=== PATIENT | male | born 1970 | race African-American/Black ===

== ENCOUNTER 2016-04-29 21:43 | Emergency (ER) | payer OTHER ==
[~2016-04-29] VITALS: Ht 180.3 cm; Wt 85.0 kg
[2016-04-29 22:17] VITALS: BP 143/88; PULSE 69; RESP 16; TEMP 99; O2SAT 99
[2016-04-29] MEDS ORDERED: SODIUM CHLOR 0.9% 1000 ML INJ 1,000 ML IV ONE (22:33)
--- NOTE | 2016-04-29 22:38 | PD ---
HPI Chief Complaint: Flank/Kidney Pain Time Seen by Provider: 22:33 Travel History International Travel<30 days: No Contact w/Intl Traveler<30days: No Traveled to known affect area: No History of Present Illness HPI 46-year-old male presents to the emergency department by private transportation the care of his spouse for evaluation of right flank pain. Patient reports history of recurrent kidney stones. Patient reports he has never had this type of pain and discomfort before. Patient states due to persistent nausea and vomiting unable to hydrate. Patient was seen earlier in the week at work for swallowing be seen by primary care provider and ultrasound was done that showed hydronephrosis. Patient has pain from the right flank to the right lower quadrant. Patient denies fever chills. Patient is also on oral antibiotic is reportedly has a urinary tract infection. Patient states that he was given ibuprofen 800 mg but has not had adequate pain relief. Patient states he typically does well with oral hydration and nonsteroidal anti-inflammatory but this episode is more severe. Patient denies other illness or concerns. PFSH Past Medical History Narrative Medical Kidney stones, partial colectomy--pediatric; no tobacco use Social History Tobacco Use: No Allergies-Medications (Allergen,Severity, Reaction): Coded Allergies: Tetracycline (Verified Allergy, Severe, Anaphylaxis, 04/29/16) Reported Meds & Prescriptions Reported Meds & Active Scripts Active Flomax (Tamsulosin HCl) 0.4 Mg Cap 0.4 Mg PO HS 7 Days Percocet (Oxycodone-Acetaminophen) 5-325 mg Tab 1 Tab PO Q6H PRN Zofran Odt (Ondansetron Odt) 4 Mg Tab 4 Mg SL Q6HR PRN Reported Ibuprofen 800 Mg Tab 800 Mg PO TID Bactrim DS (Sulfamethoxazole-Trimethoprim) 800-160 Mg Tab 1 Tab PO BID Narrative Medication motrin, antibiotic Review of Systems Except as stated in HPI: all other systems reviewed are Neg General / Constitutional: No: Fever, Chills HENT: No: Congestion Cardiovascular: No: Chest Pain or Discomfort Respiratory: No: Shortness of Breath Gastrointestinal: Positive: Nausea, Vomiting, Abdominal Pain (RLQ) Genitourinary: Positive: Urgency, Frequency, Dysuria, Hematuria, Flank Pain Musculoskeletal: No: Myalgias Skin: No Rash Neurologic: No: Weakness Psychiatric: No: Anxiety Endocrine: No: Heat Intolerance Hematologic/Lymphatic: No: Easy Bruising Physical Exam Narrative GENERAL: Well-developed well-nourished male in obvious discomfort no respiratory distress SKIN: Warm and dry. HEAD: Normocephalic. EYES: No scleral icterus. No injection or drainage. NECK: Supple, trachea midline. No JVD or lymphadenopathy. CARDIOVASCULAR: Regular rate and rhythm without murmurs, gallops, or rubs. RESPIRATORY: Breath sounds equal bilaterally. No accessory muscle use. GASTROINTESTINAL: Abdomen soft, mild tenderness without guarding or rebound in the right lower quadrant, nondistended. MUSCULOSKELETAL: No cyanosis, or edema. BACK: Nontender without obvious deformity. Right-sided flank/CVA tenderness. Data Data Last Documented VS Vital Signs Date Time Temp Pulse Resp B/P Pulse Ox O2 Delivery O2 Flow Rate FiO2 04/30/16 01:51 18 04/30/16 00:51 61 139/76 98 04/29/16 23:40 Room Air 04/29/16:17 99.0 Orders Complete Blood Count With Diff (04/29/16 22:33) Comprehensive Metabolic Panel (04/29/16 22:33) Urinalysis - C+S If Indicated (04/29/16 22:33) Ct Abd/Pel W/O Iv Contrast (04/29/16 22:33) Ecg Monitoring (04/29/16 22:33) Iv Access Insert/Monitor (04/29/16 22:33) Morphine Inj (Morphine Inj) (04/29/16 22:45) Ondansetron Inj (Zofran Inj) (04/29/16 22:45) Sodium Chloride 0.9% Flush (Ns Flush) (04/29/16 22:45) Sodium Chlor 0.9% 1000 Ml Inj (Ns 1000 M (04/29/16 22:33) Sodium Chlor 0.9% 1000 Ml Inj (Ns 1000 M (04/30/16 00:00) Tamsulosin (Flomax) (04/30/16 00:00) Oxycodone-Acetamin 5-325 Mg (Percocet (04/30/16 01:15) Labs Laboratory Tests Test 04/29/16 04/29/16 22:50 23:00 White Blood Count 12.9 TH/MM3 Red Blood Count 5.03 MIL/MM3 Hemoglobin 15.0 GM/DL Hematocrit 44.9 % Mean Corpuscular Volume 89.2 FL Mean Corpuscular Hemoglobin 29.8 PG Mean Corpuscular Hemoglobin 33.4 % Concent Red Cell Distribution Width 12.6 % Platelet Count 288 TH/MM3 Mean Platelet Volume 7.3 FL Neutrophils (%) (Auto) 81.3 % Lymphocytes (%) (Auto) 8.4 % Monocytes (%) (Auto) 6.4 % Eosinophils (%) (Auto) 0.1 % Basophils (%) (Auto) 3.8 % Neutrophils # (Auto) 10.5 TH/MM3 Lymphocytes # (Auto) 1.1 TH/MM3 Monocytes # (Auto) 0.8 TH/MM3 Eosinophils # (Auto) 0.0 TH/MM3 Basophils # (Auto) 0.5 TH/MM3 CBC Comment DIFF FINAL Differential Comment Sodium Level 141 MEQ/L Potassium Level 4.1 MEQ/L Chloride Level 106 MEQ/L Carbon Dioxide Level 27.1 MEQ/L Anion Gap 8 MEQ/L Blood Urea Nitrogen 19 MG/DL Creatinine 1.60 MG/DL Estimat Glomerular Filtration 57 ML/MIN Rate Random Glucose 101 MG/DL Calcium Level 9.2 MG/DL Total Bilirubin 0.6 MG/DL Aspartate Amino Transf 22 U/L (AST/SGOT) Alanine Aminotransferase 30 U/L (ALT/SGPT) Alkaline Phosphatase 57 U/L Total Protein 7.9 GM/DL Albumin 4.2 GM/DL Urine Color YELLOW Urine Turbidity CLEAR Urine pH 6.0 Urine Specific [place] 1.026 Urine Protein TRACE mg/dL Urine Glucose (UA) NEG mg/dL Urine Ketones 15 mg/dL Urine Occult Blood LARGE Urine Nitrite NEG Urine Bilirubin NEG Urine Leukocyte Esterase NEG Urine RBC 50-99 /hpf Urine WBC 3-5 /hpf Urine Squamous Epithelial 0-5 /hpf Cells Urine Bacteria NONE /hpf Microscopic Urinalysis Comment CULT NOT INDICATED MDM Medical Decision Making Medical Screen Exam Complete: Yes Emergency Medical Condition: Yes Medical Record Reviewed: Yes Interpretation(s) CBC & BMP Diagram 04/29/16 22:50 Vital Signs Date Time Temp Pulse Resp B/P Pulse Ox O2 Delivery O2 Flow Rate FiO2 04/29/16 22:17 99.0 69 16 143/88 99 Last Impressions Abdomen/Pelvis CT 04/29/16 0186 Signed Impressions: Service Date/Time: April 22:47 - CONCLUSION: 1. Bilateral renal calculi. 2. 4 mm distal right ureteral stone with obstruction. Details given above. Gary Bruno Jr., MD Differential Diagnosis Renal colic, obstructive uropathy/hydronephrosis/hydroureter, UTI, renal insufficiency Narrative Course IV access obtained specimens collected and sent for resulting patient to CT kidney stone protocol normal saline bolus administered along with morphine sulfate 3 mg IV and Zofran 4 mg IV At 11:20 PM patient has returned from CAT scan reports that his pain has resolved and the: CT reading is consistent with distal right ureteral 4 mm stone not quite at the UVJ with resultant hydroureter and hydronephrosis with perinephric stranding bilateral kidney stones noted. Patient is also identified to have leukocytosis 12,900 with 81% neutrophils and renal insufficiency BUN of 19 and creatinine of 1.6, gfr 57, decreased Patient administered additional IV fluids; UA pending Urinalysis is remarkable for red blood cells and occult blood; no bacteria or white cells CT abdomen and pelvis resulted consistent with distal 4 mm stone patient informed of imaging results and encouraged to use strainer and to follow-up with urologist and primary care provider as needed. Patient will be given prescription for Zofran, Flomax, and Percocet. Diagnosis Primary Impression: Ureterolithiasis Additional Impression: Renal insufficiency Referrals: Urologist call for appointment mail caller urologist Dr Hay Patient Instructions: General Instructions Additional Instructions: Increase fluid hydration Strain urine Complete current course of antibiotic as prescribed Decrease use of nonsteroidal anti-inflammatory medication such as ibuprofen due to renal function Use acetaminophen/Tylenol as needed for fever 100.4F or greater or for minor pain Take pain medication as prescribed Take Flomax as prescribed Return to the emergency department for any concerns or change in condition Follow-up with urology Follow-up with primary care provider Med/Other Pt SpecificInfo: Prescription(s) given Scripts Tamsulosin (Flomax)0.4 Mg Cap0.4 Mg PO HS 7 Days Ref 0 Prov:Aura Howard MD 04/29/16 Oxycodone-Acetaminophen (Percocet)5-325 mg Tab1 Tab PO Q6H PRN (PAIN) #10 TAB Ref 0 Prov:Aura Howard MD 04/29/16 Ondansetron Odt (Zofran Odt)4 Mg Tab4 Mg SL Q6HR PRN (Nausea/Vomiting) #10 TAB Ref 0 Prov:Aura Howard MD 04/29/16 Disposition: 01 DISCHARGE HOME Condition: Stable Aura Howard MD Apr 29, 2016 22:38
[2016-04-29] MEDS ORDERED: SODIUM CHLORIDE 0.9% FLUSH 10 ML FLUSH IVF PRN (22:45)
[2016-04-29] MEDS ORDERED: MORPHINE SULFATE 4 MG/ML INJ IV ONE (22:45)
[2016-04-29] MEDS ORDERED: ONDANSETRON HCL 4 MG/2 ML VIAL IVP ONE (22:45)
[2016-04-29 23:03] LABS: CHLORIDE 106 MEQ/L (98-107); POTASSIUM 4.1 MEQ/L (3.5-5.1); SODIUM (NA) 141 MEQ/L (136-145)
[2016-04-29 23:04] LABS: AUTOMATED NEUTROPHIL # 10.5 TH/MM3 (1.8-7.7); BASOPHIL # 0.5 TH/MM3 (0-0.2); BASOPHIL % 3.8 % (0.0-2.0); EOSINOPHIL % 0.1 % (0.0-4.0); HEMATOCRIT 44.9 % (39.0-51.0); LYMPH % 8.4 % (9.0-44.0); LYMPHOCYTE # 1.1 TH/MM3 (1.0-4.8); MEAN CELL VOLUME 89.2 FL (80.0-100.0); MEAN CORPUSCULAR HEMOGLOBIN 29.8 PG (27.0-34.0); MEAN CORPUSCULAR HGB CONC 33.4 % (32.0-36.0); MONO % 6.4 % (0.0-8.0); NEUT % 81.3 % (16.0-70.0); PLATELET COUNT 288 TH/MM3 (150-450); RED BLOOD COUNT 5.03 MIL/MM3 (4.50-5.90); RED CELL DISTRIBUTION WIDTH 12.6 % (11.6-17.2); WHITE BLOOD COUNT 12.9 TH/MM3 (4.0-11.0)
[2016-04-29 23:05] LABS: HEMO FLAGS DIFF FINAL
[2016-04-29 23:07] LABS: ANION GAP 8 MEQ/L (5-15); BICARBONATE 27.1 MEQ/L (21.0-32.0); BLOOD UREA NITROGEN 19 MG/DL (7-18)
[2016-04-29 23:10] LABS: ALT (GPT) 30 U/L (12-78); AST (GOT) 22 U/L (15-37)
[2016-04-29 23:11] LABS: GLOMERULAR FILTRATION RATE 57 ML/MIN (>89)
[2016-04-29 23:12] LABS: TOTAL BILIRUBIN ADULT 0.6 MG/DL (0.2-1.0)
[2016-04-29 23:13] LABS: ALKALINE PHOSPHATASE 57 U/L (45-117)
--- NOTE | 2016-04-29 23:21 | RADHPO ---
EXAM DATE/TIME: 04/29/2016 22:47 [facility] COMPARISON: No previous studies available for comparison. INDICATIONS : Right flank pain. Gross hematuria. ORAL CONTRAST: No oral contrast ingested. RADIATION DOSE: 15.82 CTDIvol (mGy) MEDICAL HISTORY : None SURGICAL HISTORY : None. ENCOUNTER: Initial ACUITY: 3 days PAIN SCALE: 9/10 LOCATION: Right flank TECHNIQUE: Volumetric scanning of the abdomen and pelvis was performed. Using automated exposure control and ad justment of the mA and/or kV according to patient size, radiation dose was kept as low as reasonably achievable to obtain optimal diagnostic quality images. FINDINGS: LOWER LUNGS: A calcified granuloma is seen within the right lung base. Left lung base is clear. LIVER: Homogeneous density without lesion. There is no dilation of the biliary tree. No calcified gallston es. SPLEEN: Normal size without lesion. PANCREAS: Within normal limits. KIDNEYS: There is a 4 mm distal right ureteral stone approximately 3 cm from the UVJ. There is resulting hydro nephrosis and hydroureter. Mild perinephric stranding on the right. No perinephric fluid collections or abscess. Bilateral renal calculi are noted. The largest stone measures 4 mm on each side. No hydro nephrosis on the left. ADRENAL GLANDS: Within normal limits. VASCULAR: There is no aortic aneurysm. BOWEL/MESENTERY: The stomach, small bowel, and colon demonstrate no acute abnormality. There is no free intraperitone al air or fluid. ABDOMINAL WALL: Within normal limits. RETROPERITONEUM: There is no lymphadenopathy. BLADDER: No wall thickening or mass. REPRODUCTIVE: Within normal limits. INGUINAL: There is no lymphadenopathy or hernia. MUSCULOSKELETAL: Within normal limits for patient age. CONCLUSION: 1. Bilateral renal calculi. 2. 4 mm distal right ureteral stone with obstruction. Details given above. Gary Bruno Jr., MD on April 29, 2016 at 23:16 Board Certified Radiologist. This report was verified electronically.
[2016-04-29 23:22] LABS: BLOOD, URINE LARGE (NEG); GLUCOSE,URINE NEG (NEG); KETONE, URINE 15 mg/dL (NEG); NITRITE,URINE NEG (NEG)
[2016-04-29] MEDS ORDERED: IBUP800T23 PO (23:25)
[2016-04-29] MEDS ORDERED: BACT800T5 PO (23:25)
[2016-04-29 23:28] LABS: URINE COLOR YELLOW (YELLW/STRAW)
[2016-04-29 23:29] LABS: COMMENT (UR) CULT NOT INDICATED; CULTURE IF INDICATED CULT NOT INDICATED; SQUAMOUS EPITHELIAL CELL URINE 0-5 /hpf (0-5)
[2016-04-29 23:40] VITALS: BP 113/65; PULSE 66; RESP 17; O2SAT 97
[2016-04-29] MEDS ORDERED: PERC5TAB12 PO (23:50)
[2016-04-29] MEDS ORDERED: ZOFR4TAB3 SL (23:50)
[2016-04-29] MEDS ORDERED: TAMS5CAP PO (23:52)
[2016-04-30] MEDS ORDERED: SODIUM CHLOR 0.9% 1000 ML INJ 1,000 ML IV ONE
[2016-04-30] MEDS ORDERED: TAMSULOSIN HCL 0.4 MG CAP PO ONE
[2016-04-30 00:51] VITALS: BP 139/76
[2016-04-30] MEDS ORDERED: oxyCODONE/ACETAMINOPHEN 5 MG/325 MG TAB PO ONE (01:15)
[2016-04-30 01:51] VITALS: RESP 18
== END 2016-04-30 01:52 | disposition home or self-care (01) ==
LOC: PHED 21:43
DX: N20.2 Calculus of kidney with calculus of ureter (principal); N13.2 Hydronephrosis with renal and ureteral calculous obstruction; N20.1 Calculus of ureter
CPT/HCPCS: 74176; 80053; 81001; 85025; 96361; 96374; 99284; J2405; J7030